=== PATIENT | male | born 1955 | race Asian ===

== ENCOUNTER 2023-11-25 04:18 | Inpatient (IN) | payer OTHER ==
[2023-11-21 12:03] VITALS: BMI 22.1
[2023-11-25] MEDS ORDERED: ONDANSETRON 4 MG/2 ML VIAL IVPUSH PRN ×3 (09:31→18:07)
[2023-11-25] MEDS ORDERED: PROMETHAZINE HCL 25 MG/1 ML VIAL IVPB PRN (09:31)
[2023-11-25] MEDS ORDERED: NALOXONE HCL 0.4 MG/ML VIAL IVPUSH PRN (09:33)
[2023-11-25] MEDS: morphine SULFATE/PF 1 MG/2 ML (2cc Syringe - QUVA) IT ONE (09:33)
[2023-11-25] MEDS ORDERED: LACTATED RINGERS SOLUTION 1,000 ML IV SCH (09:45)
[2023-11-25] MEDS ORDERED: GENTAMICIN SO4 80 MG/2 ML VIAL ONE (09:54)
[2023-11-25] MEDS ORDERED: THROMBIN (BOVINE) 5,000 UNIT VIAL TP ONE (09:54)
[2023-11-25] MEDS ORDERED: VANCOMYCIN 1,000 MG VIAL (RESTRICTED TO ID ONLY) ONE (09:54)
[2023-11-25] MEDS ORDERED: LIDOCAINE 1%/EPI 1:100000 (20 ML MULTI DOSE VIAL) ONE (09:55)
[2023-11-25] MEDS ORDERED: BUPIVACAINE LIPOSOME/PF (EXPAREL) 266 MG/20 ML VIAL ONE (09:55)
[2023-11-25] MEDS ORDERED: BUPIVACAINE HCL/PF 0.5% (5MG/ML) 10 ML VIAL ONE (09:55)
[2023-11-25] MEDS: ceFAZolin SODIUM 1 GM VIAL IVPB ONE (13:00)
[2023-11-25] MEDS: VANCOMYCIN 1 GM in NS (PRE-DOCKED) 1,000 MG/250 ML (RESTRICTED TO ID ONLY) IVPB ONE (13:00)
[2023-11-25] MEDS: LIDOCAINE 1%/EPI 1:100000 (20 ML MULTI DOSE VIAL) IJ ONE (13:03)
[2023-11-25] MEDS: GENTAMICIN SO4 80 MG/2 ML VIAL IVPB ONE ×2 (13:11→14:10)
[2023-11-25] MEDS: THROMBIN (BOVINE) 5,000 UNIT VIAL TP ONE ×2 (13:11→13:30)
[2023-11-25] MEDS: HYDROGEN PEROXIDE 473 ML PO ONE ×2 (13:12→14:10)
[2023-11-25] MEDS: VANCOMYCIN 1 GM in D5W (PRE-DOCKED) 1,000 MG/250 ML (RESTRICTED TO ID ONLY IVPB ONE (13:40)
[2023-11-25] MEDS: BUPIVACAINE HCL/PF 0.5% (5MG/ML) 10 ML VIAL IJ ONE ×2 (15:41→16:00)
[2023-11-25] MEDS: BUPIVACAINE LIPOSOME/PF (EXPAREL) 266 MG/20 ML VIAL NR ONE ×2 (15:41→16:00)
[2023-11-25] MEDS ORDERED: diphenhydrAMINE HCL 25 MG CAPSULE (FP) PO PRN (18:07)
[2023-11-25] MEDS: LACTATED RINGERS SOLUTION 1,000 ML/1,000 ML INFUS.BAG IV SCH (20:44)
[2023-11-25] MEDS: DOCUSATE SODIUM 100 MG CAPSULE (FP) PO SCH (21:36)
[2023-11-25] MEDS: HEPARIN NA (PORCINE) 5,000 UNITS/ML 1ML VIAL SQ SCH (21:36)
[2023-11-25] MEDS: ACETAMINOPHEN 325 MG TABLET (FP) PO SCH (21:37)
[2023-11-25] MEDS: CEFAZOLIN 1 GM in DEXTROSE 5%-WATER - 50 ML IVPB SCH (21:37)
[2023-11-26] MEDS: INSULIN ASPART SLIDING SCALE (NOVOLOG) 1 VIAL SQ SCH (06:08)
[2023-11-26 07:41] LABS: HEMATOCRIT 35.1 % (35.4-49); HEMOGLOBIN 11.8 GM/dL (11.7-16.9); MCH 28.1 pg (25.7-33.7); MCHC 33.7 g/dl (32.0-35.9); MEAN CELL VOLUME 83.3 fl (80-96); MEAN PLT VOLUME 7.5 fl (7.5-11.1); PLATELET COUNT 243 10^3/uL (134-434); RBC 4.22 M/mm3 (4.00-5.60); RDW 13.7 % (11.9-15.9); WHITE BLOOD COUNT 13.5 K/mm3 (4.0-10.0)
[2023-11-26 08:04] LABS: POTASSIUM 4.5 mmol/L (3.5-5.1)
[2023-11-26 08:07] LABS: BLOOD UREA NITROGEN 14.9 mg/dL (7-18); CALCIUM 9.5 mg/dL (8.5-10.1)
[2023-11-26 08:11] LABS: CREATININE 1.1 mg/dL (0.55-1.3)
[2023-11-26] MEDS: LISINOPRIL 5 MG TABLET PO SCH (10:28)
[2023-11-26] MEDS: ROSUVASTATIN CA 10 MG TABLET PO SCH (10:34)
[2023-11-26] MEDS: TAMSULOSIN HCL 0.4 MG CAP PO SCH (10:34)
[2023-11-26] MEDS: oxyCODONE HCL 5 MG TABLET PO PRN ×2 (11:53→13:19)
[2023-11-26] MEDS: PREGABALIN 50 MG CAPSULE PO SCH (13:21)
[2023-11-26 19:44] LABS: EPI CELLS 2 /uL (0-25.1); HYALINE CASTS 0 /uL (0-3.1); PH,URINE 6.5 (5.0-8.0); URINE APPEARANCE CLEAR; URINE BACTERIA 3 /uL (0-1359); URINE BILIRUBIN NEGATIVE (NEGATIVE); URINE COLOR YELLOW; URINE GLUCOSE (UA) 1+ (NEGATIVE); URINE KETONE NEGATIVE (NEGATIVE); URINE LEUK ESTERASE TRACE (NEGATIVE); URINE NITRITE NEGATIVE (NEGATIVE); URINE PROTEIN NEGATIVE (NEGATIVE); URINE RBC 135 /uL (0-23.9); URINE UROBILINOGEN 0.2 mg/dL (0.2-1.0); URINE WBC 13 /uL (0-25.8)
[2023-11-27 09:17] LABS: BASO % 0.5 % (0-2.0); EOS % 0.4 % (0-4.5); HEMATOCRIT 30.7 % (35.4-49); HEMOGLOBIN 10.8 GM/dL (11.7-16.9); LYMPH % 16.4 % (8-40); MCH 28.9 pg (25.7-33.7); MCHC 35.2 g/dl (32.0-35.9); MEAN CELL VOLUME 82.1 fl (80-96); MONO % 8.8 % (3.8-10.2); NEUT % 73.9 % (42.8-82.8); PLATELET COUNT 225 10^3/uL (134-434); RBC 3.75 M/mm3 (4.00-5.60); WHITE BLOOD COUNT 10.2 K/mm3 (4.0-10.0)
[2023-11-27 09:32] LABS: POTASSIUM 4.4 mmol/L (3.5-5.1)
[2023-11-27 09:35] LABS: BLOOD UREA NITROGEN 18.4 mg/dL (7-18)
[2023-11-27 09:38] LABS: CREATININE 0.9 mg/dL (0.55-1.3)
[2023-11-27 09:40] LABS: BILIRUBIN,TOTAL 0.5 mg/dL (0.2-1); TOT PROT 6.2 g/dl (6.4-8.2)
[2023-11-27 10:02] LABS: ALBUMIN 3.3 g/dl (3.4-5.0)
[2023-11-27] MEDS: INSULIN (LEVEMIR) 100 UNITS/ML UNITS SQ SCH (10:14)
[2023-11-27] MEDS: POLYETHYLENE GLYCOL (HEALTHYLAX) 3350 17 GM PACKET PO SCH (12:02)
[2023-11-27] MEDS ORDERED: IOHEXOL 350 MG/ML IV ONE (16:39)
[2023-11-27] MEDS: IOHEXOL (OMNIPAQUE IV) 350 MG/ML - 100 ML BOTTLE PO ONE (17:50)
[2023-11-27] MEDS: BISACODYL 10 MG SUPP.RECT PR PRN (21:40)
[2023-11-28] MEDS: METHYLNALTREXONE BROMIDE 8 MG/0.4 ML SYRINGE SQ ONE (11:27)
[2023-11-29 10:08] LABS: BASO % 0.3 % (0-2.0); EOS % 2.8 % (0-4.5); HEMATOCRIT 33.3 % (35.4-49); HEMOGLOBIN 11.4 GM/dL (11.7-16.9); LYMPH % 22.2 % (8-40); MCH 28.1 pg (25.7-33.7); MCHC 34.2 g/dl (32.0-35.9); MEAN CELL VOLUME 82.2 fl (80-96); MEAN PLT VOLUME 7.5 fl (7.5-11.1); MONO % 7.4 % (3.8-10.2); NEUT % 67.3 % (42.8-82.8); PLATELET COUNT 279 10^3/uL (134-434); RBC 4.05 M/mm3 (4.00-5.60); RDW 13.7 % (11.9-15.9); WHITE BLOOD COUNT 10.2 K/mm3 (4.0-10.0)
[2023-11-29 10:29] LABS: POTASSIUM 4.6 mmol/L (3.5-5.1)
[2023-11-29 10:31] LABS: CALCIUM 9.1 mg/dL (8.5-10.1)
[2023-11-29 10:32] LABS: ALBUMIN 3.2 g/dl (3.4-5.0); BLOOD UREA NITROGEN 25.2 mg/dL (7-18)
[2023-11-29 10:35] LABS: CREATININE 1.1 mg/dL (0.55-1.3)
[2023-11-29 10:36] LABS: BILIRUBIN,TOTAL 0.5 mg/dL (0.2-1); TOT PROT 6.6 g/dl (6.4-8.2)
[2023-11-29] MEDS ORDERED: NALOXONE HCL 0.4 MG/ML VIAL IVPUSH PRN (20:26)
[2023-11-29] MEDS ORDERED: diphenhydrAMINE HCL 25 MG CAPSULE (FP) PO PRN (20:26)
[2023-11-29] MEDS ORDERED: BISACODYL 10 MG SUPP.RECT PR PRN (20:26)
[2023-11-29] MEDS ORDERED: ONDANSETRON 4 MG/2 ML VIAL IVPUSH PRN ×2 (20:26)
[2023-11-29] MEDS ORDERED: oxyCODONE HCL 5 MG TABLET PO PRN (20:26)
[2023-11-29] MEDS: MINERAL OIL ENEMA 133 ML ENEMA RC ONE (20:40)
[2023-11-29] MEDS: HEPARIN NA (PORCINE) 5,000 UNITS/ML 1ML VIAL SQ SCH (21:32)
[2023-11-29] MEDS: POLYETHYLENE GLYCOL (HEALTHYLAX) 3350 17 GM PACKET PO SCH (21:32)
[2023-11-29] MEDS: INSULIN (LEVEMIR) 100 UNITS/ML UNITS SQ SCH (21:32)
[2023-11-29] MEDS: DOCUSATE SODIUM 100 MG CAPSULE (FP) PO SCH (21:33)
[2023-11-29] MEDS: oxyCODONE HCL 5 MG TABLET PO PRN (21:46)
[2023-11-29] MEDS: ACETAMINOPHEN 325 MG TABLET (FP) PO SCH (22:01)
[2023-11-30] MEDS: CEFAZOLIN 1 GM in DEXTROSE 5%-WATER - 50 ML IVPB SCH (01:30)
[2023-11-30] MEDS: INSULIN ASPART SLIDING SCALE (NOVOLOG) 1 VIAL SQ SCH (06:22)
[2023-11-30 07:58] LABS: BASO % 0.3 % (0-2.0); EOS % 1.5 % (0-4.5); HEMATOCRIT 32.2 % (35.4-49); LYMPH % 13.8 % (8-40); MCHC 34.2 g/dl (32.0-35.9); MEAN CELL VOLUME 81.8 fl (80-96); MEAN PLT VOLUME 7.5 fl (7.5-11.1); MONO % 6.6 % (3.8-10.2); NEUT % 77.8 % (42.8-82.8); PLATELET COUNT 316 10^3/uL (134-434); RBC 3.94 M/mm3 (4.00-5.60); RDW 13.6 % (11.9-15.9)
[2023-11-30 08:17] LABS: POTASSIUM 4.7 mmol/L (3.5-5.1)
[2023-11-30 08:19] LABS: CALCIUM 9.1 mg/dL (8.5-10.1)
[2023-11-30 08:20] LABS: ALBUMIN 3.2 g/dl (3.4-5.0); BLOOD UREA NITROGEN 27.3 mg/dL (7-18)
[2023-11-30 08:25] LABS: BILIRUBIN,TOTAL 0.4 mg/dL (0.2-1); TOT PROT 6.6 g/dl (6.4-8.2)
[2023-11-30] MEDS: METHYLNALTREXONE BROMIDE 8 MG/0.4 ML SYRINGE SQ ONE (10:31)
[2023-11-30] MEDS: ROSUVASTATIN CA 10 MG TABLET PO SCH (10:39)
[2023-11-30] MEDS: LISINOPRIL 5 MG TABLET PO SCH (10:43)
[2023-11-30] MEDS: TAMSULOSIN HCL 0.4 MG CAP PO SCH (10:45)
[2023-12-01 05:28] VITALS: RESP 20
[2023-12-01] MEDS: BISACODYL 5 MG TABLET.DR (FP) PO PRN (14:09)
[2023-12-01] MEDS: DEXTROSE 5%-NORMAL SALINE 1,000 ML IV SCH (17:03)
[2023-12-01] MEDS: MAGNESIUM CITRATE 300 ML BOTTLE PO ONE (17:18)
[2023-12-01] MEDS: Methylnaltrexone Bromide 12 MG/0.6 ML KIT SQ ONE (17:18)
[2023-12-02 10:04] LABS: HEMATOCRIT 30.8 % (35.4-49); HEMOGLOBIN 10.6 GM/dL (11.7-16.9); MCH 28.6 pg (25.7-33.7); MCHC 34.4 g/dl (32.0-35.9); MEAN CELL VOLUME 83.4 fl (80-96); MEAN PLT VOLUME 7.3 fl (7.5-11.1); PLATELET COUNT 366 10^3/uL (134-434); RBC 3.69 M/mm3 (4.00-5.60); RDW 13.5 % (11.9-15.9); WHITE BLOOD COUNT 9.8 K/mm3 (4.0-10.0)
[2023-12-02 10:28] LABS: POTASSIUM 4.3 mmol/L (3.5-5.1)
[2023-12-02 10:40] LABS: ALBUMIN 2.9 g/dl (3.4-5.0); BLOOD UREA NITROGEN 20.8 mg/dL (7-18); CALCIUM 8.9 mg/dL (8.5-10.1)
[2023-12-02 10:43] LABS: CREATININE 0.9 mg/dL (0.55-1.3)
[2023-12-02 10:45] LABS: BILIRUBIN,TOTAL 0.3 mg/dL (0.2-1); TOT PROT 6.4 g/dl (6.4-8.2)
[2023-12-03] MEDS ORDERED: INSULIN (LEVEMIR) 100 UNITS/ML UNITS SQ ONE (05:42)
[2023-12-03] MEDS ORDERED: INSULIN ASPART SLIDING SCALE (NOVOLOG) 1 VIAL SQ ONE (05:42)
[2023-12-03] MEDS: TAMSULOSIN HCL 0.4 MG CAP PO SCH (09:40)
[2023-12-03 15:06] VITALS: BP 121/74; PULSE 84; TEMP 98.6
== END 2023-12-03 15:14 | DRG 454 ==
LOC: J2C 04:18 → J4S 19:03 → J8W 11-29 17:43
PROVIDERS: ADMIT Neurological Surgery; ATTEND Family Medicine
PROC: 0SG00AJ Fusion of Lumbar Vertebral Joint with Interbody Fusion Device, Posterior Approach, Anterior Column, Open Approach (ICD-10-PCS; principal; 2023-11-27)
PROC: 0SG0071 Fusion of Lumbar Vertebral Joint with Autologous Tissue Substitute, Posterior Approach, Posterior Column, Open Approach (ICD-10-PCS; 2023-11-27)
PROC: 0SB20ZZ Excision of Lumbar Vertebral Disc, Open Approach (ICD-10-PCS; 2023-11-27)
PROC: 00NY0ZZ Release Lumbar Spinal Cord, Open Approach (ICD-10-PCS; 2023-11-27)
PROC: 00QT0ZZ Repair Spinal Meninges, Open Approach (ICD-10-PCS; 2023-11-27)
PROC: 4A11X4G Monitoring of Peripheral Nervous Electrical Activity, Intraoperative, External Approach (ICD-10-PCS; 2023-11-27)
DX: M51.36 Other intervertebral disc degeneration, lumbar region (principal); G97.41 Accidental puncture or laceration of dura during a procedure; M48.061 Spinal stenosis, lumbar region without neurogenic claudication; Y83.8 Other surgical procedures as the cause of abnormal reaction of the patient, or of later complication, without mention of misadventure at the time of the procedure; I10 Essential (primary) hypertension; E11.9 Type 2 diabetes mellitus without complications; R91.1 Solitary pulmonary nodule; R93.89 Abnormal findings on diagnostic imaging of other specified body structures; D86.9 Sarcoidosis, unspecified; R33.9 Retention of urine, unspecified; N40.0 Benign prostatic hyperplasia without lower urinary tract symptoms
CPT/HCPCS: 36415; 71046-TC-FY; 71250-TC; 72131-TC; 74018-TC-FY; 74176-TC; 80048; 80053; 81003; 82962; 83036; 83690; 85025; 85027; 86850; 86900; 86901; 87040; 87086; 88304-TC; 93005; 93010; 93306-TC; 94010; 94760; 97116-GP; 97161-GP; C1713; C1889; J1644